=== PATIENT | male | born 1945 | race Caucasian/White ===

== ENCOUNTER 2017-01-03 10:39 | Emergency (ER) | payer MEDICARE, OTHER ==
[2017-01-03] MEDS ORDERED: DILTIAZEM 25MG/5ML VIAL IV ONE (11:08)
[2017-01-03 11:24] LABS: BASO % 0.4 % (0-6); GRAN % 69.7 % (47-80); HEMATOCRIT 38.6 % (42.0-52.0); HEMOGLOBIN 12.7 gm/dl (14.0-18.0); LYMPH % 21.4 % (16-45); MEAN CORPUSCULAR HGB CONC 32.9 g/dl (32-36); MEAN PLATELET VOLUME 10.4 fl (7.4-10.4); MONO % 6.5 % (0-9); PLATELET COUNT 265 K/uL (130-400); RED BLOOD COUNT 4.24 M/uL (4.40-5.70); RED CELL DISTRIBUTION WIDTH 13.9 % (11.5-14.5); WHITE BLOOD COUNT W/O DIFF 8.4 K/uL (4.2-12.2)
[2017-01-03 11:25] LABS: MEAN CORPUSCULAR HEMOGLOBIN 29.9 pg (27-33)
[2017-01-03 11:36] LABS: ANION GAP 13.2 (7-16); CARBON DIOXIDE 22.8 mmol/L (22-30); CREATININE 2.2 mg/dL (0.66-1.25)
--- NOTE | 2017-01-03 11:46 | Emergency Department Record ---
History of Present Illness - General Chief Complaint: Arrythmia/Palpitations Stated Complaint: A-FIB/HEART RATE ELEVATED Time Seen by Provider: 01/03/17 11:04 Source: Patient Mode of Arrival: Ambulatory Limitations: No limitations - History of Present Illness Initial Comments: pt started feeling palpitations this morning and knew he was back in afib. he had a short bout yesterday that spontaneously resolved. he has no chest pain. he has been both medically and electrically converted in past MD Complaint: Atrial fibrillation, Palpitations Onset/Timin -: Hour(s) Arrythmia History: Atrial fibrillation, History of electrical cardioversion Associated Symptoms: Denies other symptoms - Related Data Home Medications Medication Instructions Recorded Confirmed Last Taken Amlodipine Besylate [Norvasc] 10 mg PO BID 04/20/14 01/03/17 01/03/17 Apixaban [Eliquis] 5 mg PO BID 04/20/14 01/03/17 01/03/17 Multivit-Min/FA/Lycopene/Lut 1 each PO ASDIR 04/20/14 01/03/17 01/03/17 [Centrum Silver Tablet] Cholecalciferol (Vitamin D3) 2,000 unit PO DAILY 07/15/15 01/03/17 01/03/17 [Vitamin D3] Doxazosin Mesylate [Cardura] 2 mg PO QHS 07/15/15 01/03/17 01/03/17 [place]-3/Dha/Epa/Fish Oil [Fish Oil] 500 mg PO DAILY 07/15/15 01/03/17 01/03/17 Rosuvastatin Calcium [Crestor] 10 mg PO DAILY 07/15/15 01/03/17 01/03/17 Sertraline HCl [Zoloft] 50 mg PO DAILY 07/15/15 01/03/17 01/03/17 Dronedarone HCl [Multaq] 400 mg PO BID 01/03/17 01/03/17 01/03/17 Allergies Allergy/AdvReac Type Severity Reaction Status Date / Time No Known Drug Allergies Allergy Verified 01/03/17 10:47 Travel Screening - Travel/Exposure Within Last 30 Days Have you traveled within the last 30 days?: No - Travel/Exposure Within Last Year Have you traveled outside the [place] in the last year?: No - Additonal Travel Details Have you been exposed to anyone with a communicable illness?: No - Travel Symptoms Symptom Screening: None Review of Systems Reviewed: No additional complaints except as noted below Constitutional: Reports: As per HPI. Denies: Chills, Fever, Malaise, Night sweats, Weakness, Weight change Eyes: Reports: As per HPI. Denies: Eye discharge, Eye pain, Photophobia, Vision change ENT: Reports: As per HPI. Denies: Congestion, Dental pain, Ear pain, Epistaxis , Hearing loss, Throat pain Respiratory: Reports: As per HPI. Denies: Cough, Dyspnea, Hemoptysis, Stridor, Wheezes Cardiovascular: Reports: As per HPI. Denies: Arrhythmia, Chest pain, Dyspnea on exertion, Edema, Murmurs, Orthopnea, Palpitations, Paroxysmal nocturnal dyspnea, Rheumatic Fever, Syncope Endocrine: Reports: As per HPI. Denies: Fatigue, Heat or cold intolerance, Polydipsia, Polyuria Gastrointestinal: Reports: As per HPI. Denies: Abdominal pain, Constipation, Diarrhea, Hematemesis, Hematochezia, Melena, Nausea, Vomiting Genitourinary: Reports: As per HPI. Denies: Dysuria, Frequency, Hematuria, Incontinence, Retention, Testicular pain, Testicular mass, Urgency Musculoskeletal: Reports: As per HPI. Denies: Arthralgia, Back pain, Gout, Joint swelling, Myalgia, Neck pain Skin: Reports: As per HPI. Denies: Bruising, Change in color, Change in hair/ nails, Lesions, Pruritus, Rash Neurological: Reports: As per HPI. Denies: Abnormal gait, Confusion, Headache, Numbness, Paresthesias, Seizure, Tingling, Tremors, Vertigo, Weakness Psychiatric: Reports: As per HPI. Denies: Anxiety, Auditory hallucinations, Depression, Homicidal thoughts, Suicidal thoughts, Visual hallucinations Hematological/Lymphatic: Reports: As per HPI. Denies: Anemia, Blood Clots, Easy bleeding, Easy bruising, Swollen glands Past Medical History - SOCIAL HISTORY Smoking Status: Former smoker Alcohol Use: None Drug Use: None - RESPIRATORY Hx Respiratory Disorders: No - CARDIOVASCULAR Hx Cardio Disorders: Yes Hx CHF: Yes Hx Irregular Heartbeat: Yes (Afib) - NEURO Hx Neuro Disorders: Yes Hx Dizziness: Yes (comes and goes) - GI Hx GI Disorders: No - Hx Genitourinary Disorders: No - ENDOCRINE Hx Endocrine Disorders: No - MUSCULOSKELETAL Hx Musculoskeletal Disorders: No - PSYCH Hx Psych Problems: No - HEMATOLOGY/ONCOLOGY Hx Hematology/Oncology Disorders: No Family Medical History Any Significant Family History?: Yes Hx Dementia: Mother Hx Heart Disease: Brother/Sister Hx Stroke: Father, Mother Physical Exam - General General Appearance: Alert, Oriented x3, Cooperative, Mild distress - Head Head exam: Normal inspection - Eye Eye exam: Normal appearance, PERRL, EOMI Pupils: Normal accommodation - ENT ENT exam: Normal exam, Mucous membranes moist, Normal external ear exam, Normal orophraynx Ear exam: Normal external inspection. negative: External canal tenderness Nasal Exam: Normal inspection. negative: Discharge, Sinus tenderness Mouth exam: Normal external inspection, Tongue normal Teeth exam: Normal inspection. negative: Dental caries Throat exam: Normal inspection. negative: Tonsillar erythema, Tonsillar exudate - Neck Neck exam: Normal inspection, Full ROM. negative: Tenderness - Respiratory Respiratory exam: Normal lung sounds bilaterally. negative: Respiratory distress - Cardiovascular Cardiovascular Exam: Normal heart sounds, Irregular rhythm, Tachycardia - GI/Abdominal GI/Abdominal exam: Soft, Normal bowel sounds. negative: Tenderness - Rectal Rectal exam: Deferred - exam: Deferred - Extremities Extremities exam: Normal inspection, Full ROM, Normal capillary refill. negative: Tenderness - Back Back exam: Reports: Normal inspection, Full ROM. Denies: Muscle spasm, Rash noted, Tenderness - Neurological Neurological exam: Alert, Normal gait, Oriented X3, Reflexes normal - Psychiatric Psychiatric exam: Normal affect, Normal mood - Skin Skin exam: Dry, Intact, Normal color, Warm Course Vital Signs 01/03/17 10:51 Temperature 98 F Pulse Rate 144 H Respiratory 20 Rate Blood Pressure 133/81 Pulse Ox 96 - Reevaluation(s) Reevaluation #1: 01/03/17 13:12 pts rate is slower but inconsistent. toma moore ordered. d/w dr oliveros Medical Decision Making - Lab Data Result diagrams: 01/03/17 10:50 01/03/17 10:50 Lab Results 01/03/17 Range/Units 10:50 WBC 8.4 (4.2-12.2) K/uL RBC 4.24 L (4.40-5.70) M/uL Hgb 12.7 L (14.0-18.0) gm/dl Hct 38.6 L (42.0-52.0) % MCV 91.0 (81-97) fl MCH 29.9 (27-33) pg MCHC 32.9 (32-36) g/dl RDW 13.9 (11.5-14.5) % Plt Count 265 (130-400) K/uL MPV 10.4 (7.4-10.4) fl Gran % 69.7 (47-80) % Lymphocytes % 21.4 (16-45) % Monocytes % 6.5 (0-9) % Eosinophils % 2.0 (0-6) % Basophils % 0.4 (0-6) % Disposition Disposition: Transfer Clinical Impression: Atrial fibrillation with RVR Disposition: Acute Care Hospital Transfer Transfer To: [facility] Reason For Transfer: afib w rvr Accepting Physician: dr hanson Time Discussed w/Accepting Physician: 13:19 Forms: Patient Portal Access
[2017-01-03 11:48] LABS: TROPONIN I 0.08 ng/mL (0.00-0.034)
[2017-01-03 12:06] LABS: THYROID STIMULATING HORMONE 5.7 uIU/ml (0.465-4.68)
[2017-01-03] MEDS ORDERED: DILTIAZEM HCL 125 MG in 0.9 % SODIUM CHLORIDE 100ML 100 ML IV SCH (13:15)
--- NOTE | 2017-01-07 10:31 | RADIOLOGY REPORT ---
EXAM: AP CHEST HISTORY: ATRIAL FIBRILLATION. TECHNIQUE: AP view of the chest was obtained. Comparison: Chest x-ray 07/15/15. FINDINGS: The lungs are clear. The cardiac silhouette, diaphragm, and osseous structures are unremarkable. IMPRESSION: NEGATIVE CHEST EXAMINATION. JOB NUMBER: [id number] MTDD
== END 2017-01-03 16:33 | disposition short-term general hospital (02) ==
LOC: ER 10:39
DX: I48.0 Paroxysmal atrial fibrillation (principal); I50.9 Heart failure, unspecified
CPT/HCPCS: 71010; 80048; 83735; 84443; 84484; 85025; 93005; 93010; 96365; 96366; 96375; 99285

== ENCOUNTER 2017-05-04 13:10 | Emergency (ER) | payer MEDICARE, OTHER ==
--- NOTE | 2017-05-04 13:24 | Emergency Department Record ---
History of Present Illness - General Chief complaint: Weakness Stated complaint: LOW BP, DIZZY Time Seen by Provider: 05/04/17 13:13 Source: Patient, Family Mode of Arrival: Ambulatory Limitations: No limitations - History of Present Illness Initial comments: 71 yo male presents with a feeling of being in atrial fibrillation again. He feels light headed and dizzy with palpitations. He checked his pulse at home and it was irregular. He denies any chest pain. He is not significantly short of breath. He does feel weak. He has a history of atrial fibrillation. 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 He has been evaluated for possible ablation in the past as well but it was not indicated at that time. No edema. No changes in his medications. No other recent medical illness. PCP is Dr Juárez. Complaint: Generalized weakness (Feels like he is back in afib) -: Hour(s) Location: Generalized Severity: Moderate Consistency: Constant Improves with: None Worsens with: Exertion, Movement Context: History of similar Associated Symptoms: Denies other symptoms - [place] Coma Scale Eye Response: (4) Open spontaneously Motor Response: (6) Obeys commands Verbal Response: (5) Oriented [place] Total: 15 - Symptoms of Stroke Symptoms of stroke: Dizziness - Related Data Home Medications Medication Instructions Recorded Confirmed Last Taken Amlodipine Besylate [Norvasc] 10 mg PO BID 04/20/14 05/04/17 05/04/17 Apixaban [Eliquis] 5 mg PO BID 04/20/14 05/04/17 05/04/17 Multivit-Min/FA/Lycopene/Lut 1 each PO ASDIR 04/20/14 05/04/17 05/04/17 [Centrum Silver Tablet] Cholecalciferol (Vitamin D3) 2,000 unit PO DAILY 07/15/15 05/04/17 05/04/17 [Vitamin D3] Doxazosin Mesylate [Cardura] 2 mg PO QHS 07/15/15 05/04/17 05/03/17 [place]-3/Dha/Epa/Fish Oil [Fish Oil] 500 mg PO DAILY 07/15/15 05/04/17 05/04/17 Rosuvastatin Calcium [Crestor] 10 mg PO DAILY 07/15/15 05/04/17 05/04/17 Sertraline HCl [Zoloft] 50 mg PO DAILY 07/15/15 05/04/17 05/04/17 Dronedarone HCl [Multaq] 400 mg PO BID 01/03/17 05/04/17 05/04/17 Hydralazine HCl 50 mg PO TID 05/04/17 05/04/17 05/04/17 Allergies Allergy/AdvReac Type Severity Reaction Status Date / Time No Known Drug Allergies Allergy Verified 01/03/17 10:47 Review of Systems Constitutional: Reports: Malaise, Weakness. Denies: Chills, Fever Eyes: Denies: Eye discharge, Eye pain, Photophobia ENT: Denies: Congestion, Throat pain Respiratory: Reports: Dyspnea (mild). Denies: Cough, Hemoptysis, Stridor, Wheezes Cardiovascular: Reports: Arrhythmia, Palpitations. Denies: Chest pain, Syncope (lightheaded) Endocrine: Reports: Fatigue Gastrointestinal: Denies: Abdominal pain, Diarrhea, Nausea, Vomiting Genitourinary: Denies: Dysuria, Frequency, Hematuria Musculoskeletal: Denies: Arthralgia, Back pain, Joint swelling, Myalgia Skin: Denies: Bruising, Change in color, Rash Neurological: Denies: Headache, Numbness, Weakness Psychiatric: Denies: Anxiety Hematological/Lymphatic: Denies: Blood Clots, Easy bleeding, Easy bruising, Swollen glands Past Medical History - SOCIAL HISTORY Smoking Status: Former smoker Drug Use: None - RESPIRATORY Hx Respiratory Disorders: No - CARDIOVASCULAR Hx Cardio Disorders: Yes Hx CHF: Yes Hx Irregular Heartbeat: Yes (Afib) - NEURO Hx Neuro Disorders: Yes Hx Dizziness: Yes (comes and goes) - GI Hx GI Disorders: No - Hx Genitourinary Disorders: No - ENDOCRINE Hx Endocrine Disorders: No - MUSCULOSKELETAL Hx Musculoskeletal Disorders: No - PSYCH Hx Psych Problems: No - HEMATOLOGY/ONCOLOGY Hx Hematology/Oncology Disorders: No Family Medical History Hx Dementia: Mother Hx Heart Disease: Brother/Sister Hx Stroke: Father, Mother Physical Exam - General General Appearance: Alert, Oriented x3, Cooperative, No acute distress Limitations: No limitations - Head Head exam: Normal inspection - Eye Eye exam: Normal appearance, PERRL. negative: Conjunctival injection, Periorbital swelling - ENT ENT exam: Normal exam Ear exam: Normal external inspection Nasal Exam: Normal inspection Mouth exam: Normal external inspection - Neck Neck exam: Normal inspection, Full ROM. negative: Tenderness - Respiratory Respiratory exam: Normal lung sounds bilaterally. negative: Respiratory distress - Cardiovascular Cardiovascular Exam: Irregular rhythm, Tachycardia Peripheral Pulses: 2+: Radial (R), Radial (L) - GI/Abdominal GI/Abdominal exam: Soft. negative: Distended, Tenderness - Rectal Rectal exam: Deferred - exam: Deferred - Extremities Extremities exam: Normal inspection, Full ROM, Normal capillary refill. negative: Pedal edema, Tenderness - Back Back exam: Reports: Normal inspection, Full ROM. Denies: Muscle spasm, Rash noted, Tenderness - Neurological Neurological exam: Alert, Normal gait, Oriented X3. negative: Abnormal gait, Altered - Psychiatric Psychiatric exam: Normal affect, Normal mood. negative: Agitated, Anxious - Skin Skin exam: Dry, Intact, Normal color, Warm. negative: Cyanosis, Diaphoretic, Mottled Course - Reevaluation(s) Reevaluation #1: EKG 13:19 Atrial fibrillation with RVR rate of 128, intervals QTc 491, axis leftward, ST no acute changes 05/04/17 13:25 Reevaluation #2: The labs were reviewed CR is 2.1 (baseline) BNP is 3420 No other changes on the CBC,CMP or Troponin. CXR is negative for acute changes. No CHF 05/04/17 14:02 Reevaluation #3: I ZOEY Villasenor of [facility]/Narinder He accepts the patient for transfer to the Cardiology EP service The patient is doing well with Cardizem with HR 95-110 with BP 110 systolic 05/04/17 14:22 Medical Decision Making - Lab Data Result diagrams: 05/04/17 13:05 05/04/17 13:05 Disposition Disposition: Transfer Clinical Impression: Atrial fibrillation with RVR Disposition: Acute Care Hospital Transfer Transfer To: [facility] Reason For Transfer: Afib, cardiology consultation Accepting Physician: Link Time Discussed w/Accepting Physician: 14:21 Condition: (1) Good Forms: Patient Portal Access Time of Disposition: 14:21 Quality - Quality Measures Quality Measures: N/A - Blood Pressure Screening View Details: Yes Blood Pressure Classification: Pre-Hypertensive BP Reading Systolic Measurement: 126 Diastolic Measurement: 9 Screening for High Blood Pressure: < Pre-Hypertensive BP, F/U Documented > [ [id number]] Pre-Hypertensive Follow-up Interventions: Referral to alternative/primary care provider.
[2017-05-04 13:34] LABS: BASO % 0.6 % (0-6); EOS % 1.7 % (0-6); GRAN % 62.8 % (47-80); HEMATOCRIT 36.5 % (42.0-52.0); HEMOGLOBIN 12.3 gm/dl (14.0-18.0); LYMPH % 27.5 % (16-45); MEAN CELL VOLUME 88.2 fl (81-97); MEAN CORPUSCULAR HEMOGLOBIN 29.7 pg (27-33); MEAN CORPUSCULAR HGB CONC 33.7 g/dl (32-36); MEAN PLATELET VOLUME 9.5 fl (7.4-10.4); MONO % 7.4 % (0-9); PLATELET COUNT 248 K/uL (130-400); RED BLOOD COUNT 4.14 M/uL (4.40-5.70); RED CELL DISTRIBUTION WIDTH 14.2 % (11.5-14.5); WHITE BLOOD COUNT W/O DIFF 8.9 K/uL (4.2-12.2)
[2017-05-04] MEDS: DILTIAZEM 25MG/5ML VIAL IV ONE (13:36)
[2017-05-04 13:44] LABS: ALB/GLOB RATIO 1.1 (1.1-1.8); ALBUMIN 4.2 gm/dL (3.5-5.0); ANION GAP 10.2 (7-16); BILIRUBIN,TOTAL 1.01 mg/dL (0.2-1.3); CARBON DIOXIDE 22.8 mmol/L (22-30); CREATININE 2.1 mg/dL (0.66-1.25)
[2017-05-04] MEDS: DILTIAZEM HCL 125 MG in 0.9 % SODIUM CHLORIDE 100ML 100 ML IV SCH (13:45)
[2017-05-04 13:46] LABS: INR 1.1; PARTIAL THROMBOPLASTIN TIME 31.8 SECONDS (24.5-39.1); PROTHROMBIN TIME (PATIENT) 11.9 SECONDS (9.5-12.1)
[2017-05-04 13:57] LABS: TROPONIN I 0.016 ng/mL (0.00-0.034)
[2017-05-04 14:15] LABS: THYROID STIMULATING HORMONE 5.23 uIU/ml (0.465-4.68)
--- NOTE | 2017-05-05 12:33 | RADIOLOGY REPORT ---
EXAM: PORTABLE CHEST HISTORY: DIZZINESS, DIFFICULTY IN BREATHING, ATRIAL FIBRILLATION. TECHNIQUE: AP semi-upright portable view of the chest was obtained. Comparison: AP sitting portable chest 01/03/17. FINDINGS: Stable heart size. No definite acute infiltrate seen and no pleural effusion or pneumothorax evident. Mild perihilar interstitial prominence essentially unchanged from before and may represent some mild fibrosis. IMPRESSION: NO SIGNIFICANT CHANGE IDENTIFIED FROM 01/03/17 WITH NO DEFINITE ACUTE INFILTRATE SEEN. JOB NUMBER: [id number] [facility]
== END 2017-05-04 16:01 | disposition short-term general hospital (02) ==
LOC: ER 13:10
DX: I48.0 Paroxysmal atrial fibrillation (principal); R42 Dizziness and giddiness; R53.1 Weakness; R06.00 Dyspnea, unspecified; I50.9 Heart failure, unspecified; Z87.891 Personal history of nicotine dependence
CPT/HCPCS: 71010; 80053; 82550; 82553; 83735; 83880; 84443; 84484; 85025; 85610; 85730; 93005; 93010; 96365; 96366; 96375; 99285

== ENCOUNTER 2017-06-03 10:09 | Observation (INO) | payer MEDICARE, OTHER ==
--- NOTE | 2017-06-03 10:55 | Emergency Department Record ---
History of Present Illness - General Chief Complaint: Abdominal Pain Stated Complaint: ABD PAIN Time Seen by Provider: 06/03/17 10:17 Source: Patient, Family Mode of Arrival: Wheelchair Limitations: No limitations - History of Present Illness Initial Comments: 71 yo male presents with epigastric pain that started last night at 10pm. He has had burping and belching without relief. He tried antacids without much improvement. He is nauseated and has not eaten since 6pm yesterday. No fever. He had a normal bowel movement yesterday. No blood in the stools. No chest pain, cough or shortness of breath. No history of abdominal surgery. Earlier this month he was treated for afib. He has been back in R since that hospitalization. No leg edema. No history of gastric ulcers. NO upper endoscopy. MD Complaint: Abdominal pain Onset/Timin -: Hour(s) Location: Epigastric Radiation: Back Severity: Moderate Quality: Aching Consistency: Intermittent Improves With: Other Worsens With: Nothing Associated Symptoms: Chills Treatments Prior to Arrival: Antacids - Related Data Home Medications Medication Instructions Recorded Confirmed Last Taken Dofetilide [Dofetilide] 1 tab PO BID 06/03/17 06/03/17 06/02/17 Allergies Allergy/AdvReac Type Severity Reaction Status Date / Time No Known Drug Allergies Allergy Verified 06/03/17 10:22 Travel Screening - Travel/Exposure Within Last 30 Days Have you traveled within the last 30 days?: No - Travel/Exposure Within Last Year Have you traveled outside the [place] in the last year?: No - Additonal Travel Details Have you been exposed to anyone with a communicable illness?: No - Travel Symptoms Symptom Screening: None Review of Systems Constitutional: Denies: Chills, Fever, Malaise, Weakness Eyes: Denies: Eye discharge, Eye pain ENT: Denies: Congestion, Throat pain Respiratory: Denies: Cough, Dyspnea, Hemoptysis, Stridor Cardiovascular: Denies: Chest pain, Palpitations, Syncope Endocrine: Denies: Fatigue, Polydipsia, Polyuria Gastrointestinal: Reports: Abdominal pain, Nausea, Vomiting. Denies: Diarrhea, Hematemesis, Hematochezia, Melena Genitourinary: Denies: Dysuria, Frequency, Hematuria Musculoskeletal: Reports: As per HPI, Back pain. Denies: Arthralgia, Neck pain Skin: Denies: Bruising, Change in color Neurological: Denies: Confusion, Headache, Numbness Psychiatric: Denies: Anxiety Hematological/Lymphatic: Denies: Blood Clots, Easy bleeding, Easy bruising, Swollen glands Past Medical History - SOCIAL HISTORY Smoking Status: Former smoker Alcohol Use: None Drug Use: None - RESPIRATORY Hx Respiratory Disorders: No - CARDIOVASCULAR Hx Cardio Disorders: Yes Hx CHF: Yes Hx Irregular Heartbeat: Yes (Afib) - NEURO Hx Neuro Disorders: Yes Hx Dizziness: Yes (comes and goes) - GI Hx GI Disorders: No - Hx Genitourinary Disorders: No - ENDOCRINE Hx Endocrine Disorders: No - MUSCULOSKELETAL Hx Musculoskeletal Disorders: No - PSYCH Hx Psych Problems: No - HEMATOLOGY/ONCOLOGY Hx Hematology/Oncology Disorders: No Family Medical History Any Significant Family History?: Yes Hx Dementia: Mother Hx Heart Disease: Brother/Sister Hx Stroke: Father, Mother Physical Exam - General General Appearance: Alert, Oriented x3, Cooperative, No acute distress Limitations: No limitations - Head Head exam: Normal inspection - Eye Eye exam: Normal appearance, PERRL. negative: Conjunctival injection, Periorbital swelling - ENT ENT exam: Normal exam, Mucous membranes moist, Normal external ear exam, Normal orophraynx, TM's normal bilaterally Ear exam: Normal external inspection. negative: External canal tenderness Nasal Exam: Normal inspection. negative: Discharge, Sinus tenderness Mouth exam: Normal external inspection, Tongue normal - Neck Neck exam: Normal inspection, Full ROM. negative: Tenderness - Respiratory Respiratory exam: Normal lung sounds bilaterally. negative: Respiratory distress - Cardiovascular Cardiovascular Exam: Normal rhythm, Normal heart sounds, Bradycardia Peripheral Pulses: 2+: Radial (R), Radial (L) - GI/Abdominal GI/Abdominal exam: Soft, Guarding (RUQ and epigastrium), Tenderness. negative: Distended, Hernia, Rebound, Rigid - Rectal Rectal exam: Deferred - exam: Deferred - Extremities Extremities exam: Normal inspection, Full ROM, Normal capillary refill. negative: Tenderness - Back Back exam: Reports: Normal inspection, Full ROM. Denies: CVA tenderness (R), CVA tenderness (L), Muscle spasm, Paraspinal tenderness, Rash noted, Tenderness , Vertebral tenderness - Neurological Neurological exam: Alert, Normal gait, Oriented X3 - Psychiatric Psychiatric exam: Normal affect, Normal mood - Skin Skin exam: Dry, Intact, Normal color, Warm Course Vital Signs 06/03/17 10:30 Temperature 97.4 F L Pulse Rate 52 L Respiratory 18 Rate Blood Pressure 184/91 Pulse Ox 98 - Reevaluation(s) Reevaluation #1: EKG 11:13 sinus madhavi at 55, [place] leftward, Qtc 474, ST normal. No acute changes on the EKG. 06/03/17 11:20 Reevaluation #2: The CBC,CMP,Lipase were reviewed. No acute changes. CR is 1.4 which is much improved from prior. 06/03/17 11:51 The patient returned from [place] He is feeling much better at this time. 06/03/17 12:43 Reevaluation #3: The US was reviewed The patient has GB distension, with stones, and 7mm wall No pericholesistic fluid. Infrarenal AA 3.6 (this is known to the patient and followed by Dr Levine 06/03/17 13:13 06/03/17 13:23 Reevaluation #4: Dr Aranda accepts the patient for admission and evaluation for possible surgery 06/03/17 13:24 Medical Decision Making - Lab Data Result diagrams: 06/03/17 11:01 06/03/17 11:01 Disposition Disposition: Admit Clinical Impression: Acute cholecystitis Disposition: Still a Patient at [facility] Return To Work/School Note Provided: No Decision to Admit: Admit from ER Decision to Admit Date: 06/03/17 Decision to Admit Time: 13:20 Condition: (2) Stable Time of Disposition: 13:20 Quality - Quality Measures Quality Measures: N/A - Blood Pressure Screening View Details: Yes Does Patient Have Any of the Following: Active Dx of HTN Blood Pressure Classification: Hypertensive Reading Systolic Measurement: 184 Diastolic Measurement: 91 Screening for High Blood Pressure: Patient Exclusion, Hx of HTN [G9744] Pre-Hypertensive Follow-up Interventions: Referral to alternative/primary care provider.
[2017-06-03] MEDS ORDERED: ACETAMINOPHEN 1,000 MG/100 ML BTL IVPB ONE (11:02)
[2017-06-03 11:15] LABS: HEMOGLOBIN 12.6 gm/dl (14.0-18.0); MEAN CELL VOLUME 87.1 fl (81-97); MEAN CORPUSCULAR HEMOGLOBIN 29.6 pg (27-33); MEAN CORPUSCULAR HGB CONC 34.1 g/dl (32-36); MEAN PLATELET VOLUME 10.5 fl (7.4-10.4); PLATELET COUNT 221 K/uL (130-400); RED BLOOD COUNT 4.25 M/uL (4.40-5.70); RED CELL DISTRIBUTION WIDTH 13.7 % (11.5-14.5); WHITE BLOOD COUNT W/O DIFF 12.2 K/uL (4.2-12.2)
[2017-06-03 11:27] LABS: PLATELET ESTIMATE NORMAL (NORMAL)
[2017-06-03 11:34] LABS: INR 0.99; PARTIAL THROMBOPLASTIN TIME 28.2 SECONDS (24.5-39.1); PROTHROMBIN TIME (PATIENT) 10.7 SECONDS (9.5-12.1)
[2017-06-03 11:38] LABS: ALB/GLOB RATIO 1.2 (1.1-1.8); ALBUMIN 4.8 gm/dL (3.5-5.0); ANION GAP 13.7 (7-16); BILIRUBIN,TOTAL 0.68 mg/dL (0.2-1.3); CARBON DIOXIDE 24.3 mmol/L (22-30); CREATININE 1.4 mg/dL (0.66-1.25); TOTAL PROTEIN 8.9 gm/dL (6.3-8.2)
[2017-06-03] MEDS ORDERED: PANTOPRAZOLE SODIUM IV 40 MG VIAL IVP ONE (12:42)
[2017-06-03] MEDS ORDERED: 0.9 % SODIUM CHLORIDE 1000ML 1,000 ML IV ONE (13:21)
[2017-06-03] MEDS ORDERED: ERTAPENEM SODIUM 1 G in 0.9 % SODIUM CHLORIDE 100ML 100 ML IVPB ONE (13:21)
[2017-06-03] MEDS ORDERED: ONDANSETRON HCL IV 4 MG/2 ML VIAL IVP PRN (16:05)
[2017-06-03] MEDS ORDERED: MORPHINE SULFATE 5 MG/ML PFS IM PRN (16:05)
[2017-06-03] MEDS: DOFETILIDE 250 MCG PO SCH ×2 (17:41→21:46)
[2017-06-03] MEDS: AMLODIPINE BESYLATE 5MG TAB PO SCH (17:41)
[2017-06-03] MEDS: HYDRALAZINE HCL 25 MG TABLET PO SCH ×2 (17:42→21:45)
[2017-06-03] MEDS: SERTRALINE HCL 50 MG TABLET PO SCH (17:45)
[2017-06-03] MEDS ORDERED: HYDROMORPHONE HCL 1MG/ML **SYRINGE IVP PRN (21:26)
[2017-06-03] MEDS ORDERED: ATORVASTATIN 20 MG TABLET PO SCH (22:00)
[2017-06-03] MEDS ORDERED: DOXAZOSIN MESYLATE 2 MG TABLET PO SCH (22:00)
--- NOTE | 2017-06-04 07:18 | ULTRASOUND REPORT ---
EXAM: ABDOMEN ULTRASOUND HISTORY: ACUTE RIGHT UPPER QUADRANT ABDOMINAL PAIN. TECHNIQUE: Real-time skinner scale sonographic imaging of the abdomen was performed. Comparison: None. FINDINGS: The liver and spleen are not enlarged and appear homogeneous. No biliary dilatation. The common duct measures 4 mm in diameter, within normal limits. The gallbladder is mildly distended. Mobile calcified shadowing echogenic gallstones. The gallbladder wall is thick measuring 8 mm. No pericholecystic fluid. Sonographic French's sign was reportedly negative. The kidneys are normal without mass, calculi, or hydronephrosis. The right kidney measures 9.9 x 4.6 x 4.4 cm and the left kidney measures 11.7 x 5.7 x 5.8 cm. The pancreas is not seen due to poor penetration and bowel gas. The abdominal aorta demonstrates small to moderate size aneurysm in the infrarenal region measuring up to 3.6 cm. The IVC is patent. IMPRESSION: 1. CHOLELITHIASIS WITH THICKENING OF THE GALLBLADDER WALL. CORRELATE FOR RIGHT UPPER QUADRANT REBOUND TENDERNESS TO EXCLUDE THE POSSIBILITY OF ACUTE CHOLECYSTITIS. 2. SMALL INFRARENAL ABDOMINAL AORTIC ANEURYSM. JOB NUMBER: [id number] [facility]
[2017-06-04] MEDS: HYDRALAZINE HCL 25 MG TABLET PO SCH ×2 (09:53→16:52)
[2017-06-04] MEDS: DOFETILIDE 250 MCG PO SCH (09:53)
[2017-06-04] MEDS: AMLODIPINE BESYLATE 5MG TAB PO SCH (09:53)
[2017-06-04] MEDS: SERTRALINE HCL 50 MG TABLET PO SCH (09:54)
[2017-06-04] MEDS ORDERED: MECLIZINE 25 MG TABLET PO ONE (13:00)
[2017-06-04] MEDS ORDERED: ERTAPENEM SODIUM 1 G in 0.9 % SODIUM CHLORIDE 100ML 100 ML IV ONE (13:00)
[2017-06-04] MEDS ORDERED: FAMOTIDINE 20MG TABLET PO ONE (13:00)
[2017-06-04] MEDS ORDERED: METOCLOPRAMIDE 10 MG TABLET PO ONE (13:00)
[2017-06-04] MEDS ORDERED: ACETAMINOPHEN 1,000 MG/100 ML BTL IV ONE (13:00)
[2017-06-04] MEDS ORDERED: SEVOFLURANE 250 ML INH ONE (16:54)
[2017-06-04] MEDS ORDERED: ROCURONIUM BROMIDE 50MG/5ML VIAL IV ONE (16:54)
[2017-06-04] MEDS ORDERED: KETOROLAC 30 MG/ML VIAL IVP ONE (16:54)
[2017-06-04] MEDS ORDERED: ONDANSETRON HCL IV 4 MG/2 ML VIAL IVP ONE (16:54)
[2017-06-04] MEDS ORDERED: BUPIVACAINE 0.25% W/EPI MPF 30ML VIAL IVP ONE (16:54)
[2017-06-04] MEDS ORDERED: SUGAMMADEX SODIUM 200 MG/2 ML VIAL IV ONE (16:54)
[2017-06-04] MEDS ORDERED: EPHEDRINE SULFATE 50 MG/ML ML IV ONE (16:54)
[2017-06-04] MEDS ORDERED: LIDOCAINE 2% MDV (20MG/ML) 20ML VIAL IV ONE (16:54)
[2017-06-04] MEDS ORDERED: SUFENTANIL CITRATE 50 MCG/ML AMPUL IV ONE (16:54)
[2017-06-04] MEDS ORDERED: PROPOFOL 10 MG/ML VIAL IV ONE (16:54)
--- NOTE | 2017-06-09 11:56 | Operative Note ---
DATE OF SURGERY: 06/04/2017 PREOPERATIVE DIAGNOSIS: Acute cholecystitis. POSTOPERATIVE DIAGNOSIS: Acute cholecystitis. OPERATION: Laparoscopic cholecystectomy. HISTORY: Patient is a 71-year-old male who presented with about a 2-day history of right upper quadrant pain. He was nauseated and did vomit. He was seen in [facility] where full workup was done. Imaging studies did show gallbladder wall thickening with pericholecystic fluid. He had intense right upper quadrant pain on exam, with a mildly elevated white blood cell count. He was admitted, place on IV antibiotics, and we did discuss cholecystectomy. Risks, benefits, and alternatives were discussed. Risks included bleeding, infection, ductal injury, possible conversion to open, and postoperative bile leak. He understood this fully. He was on Eliquis as well, and we let him know that he was at increased risk for bruising, bleeding, and hematoma formation, and he understood this fully as well. The consent was signed. Questions answered. PROCEDURE: He was taken to the operating room and placed in the supine position. General anesthesias was administered per Department of Anesthesia. Patient's abdomen was prepped and draped in the usual sterile fashion. Adequate time-out was performed. Identity was confirmed. He did receive preoperative antibiotic. At this time, the supraumbilical region was anesthetized with a total of 2 mL of 0.25% Sensorcaine with epinephrine. A 2 cm supraumbilical incision was made. This was carried down bluntly to the anterior rectus fascia. This was incised. Mikayla clamps were placed along the fascial edges and brought up into the wound. Stay sutures of O Vicryl were placed. The posterior rectus sheath was incised and the peritoneal cavity was entered bluntly. At this time, at this time, a 10 mm blunt Ophelia port was placed and adequate pneumoperitoneum established. Patient was rotated into the reverse Trendelenburg with rotation to the left. Additional 5 mm epigastric and two 5 mm right subcostal ports were placed. Gallbladder was covered with omentum, which was swept inferiorly revealing a tense, distended gallbladder that was hemorrhagic consistent with the cholecystitis. At this time, a Luisana needle was used to drain the gallbladder of about 100 mL of clear bile consistent with gallbladder hydrops. At this time, the gallbladder was retracted in a cephalad and lateral direction , opening up the angle of Calot. Mainly blunt dissection was used secondary to inflammatory nature. The hepatocystic triangle was totally dissected out. There was no aberrant anatomy. No posterior ductal structures. The cystic duct and the cystic artery were skeletonized. The distal half of the gallbladder was released and the cystic plate extending on retroductal space. Cystic artery was taken down with Sourav harmonic. The cystic duct was triply clipped and cut in standard fashion. The gallbladder was taken off the liver bed with Sourav harmonic. This was placed in an EndoCatch bag and brought out through the supraumbilical port. The right upper quadrant was then irrigated with approximately 500 mL of sterile saline. There was no bleeding noted. No bile leak noted. No bowel injury noted. Patient was leveled out and pneumoperitoneum was released. All ports were removed. The fascia was closed with 0 Vicryl in a [id number] fashion. The skin in all 4 ports closed with 4-0 Vicryl. Patient was taken to recovery room in satisfactory condition. FINDINGS AT TIME OF SURGERY: Acute cholecystitis. CC: MARI SEPULVEDA MD, FACP [facility]
== END 2017-06-04 16:55 | disposition home or self-care (01) ==
LOC: ER 10:09 → MEDSURG 15:04
PROVIDERS: ADMIT Surgery; ATTEND Surgery
DX: K80.12 Calculus of gallbladder with acute and chronic cholecystitis without obstruction (principal); I48.2 Chronic atrial fibrillation; Z79.01 Long term (current) use of anticoagulants; I10 Essential (primary) hypertension; E78.00 Pure hypercholesterolemia, unspecified
CPT/HCPCS: 47562; 00790; 99285 ×2; 96374; 96375; 83690; 85730; 85610; 80053; 88304; 85027; 76700; 93005; 93010; G0378 ×2; J1335 ×2; J1885; J2405 ×2; J2270; J3490; C9113; J7030